=== PATIENT | female | born 1995 | race Caucasian/White ===

== ENCOUNTER 2018-07-18 06:27 | Day surgery (SDC) | payer OTHER | END 2018-07-18 16:50 | disposition home or self-care (01) | LOC: CIR.AMB 06:27 | DX: N80.8 Other endometriosis (principal); R10.2 Pelvic and perineal pain ==

== ENCOUNTER 2019-01-21 21:06 | Inpatient (IN) | payer OTHER ==
[~2019-01-21] VITALS: Ht 167.6 cm; Wt 47.2 kg
== END 2019-01-26 17:03 | DRG 833 ==
LOC: ER 21:06 → OB/GYN 22:17
PROVIDERS: ADMIT Obstetrics & Gynecology
PROC: 4A1HXCZ Monitoring of Products of Conception, Cardiac Rate, External Approach (ICD-10-PCS; principal; 2019-01-21)
PROC: [UNRECOGNIZED PROCEDURE] (2019-01-22)
DX: O21.1 Hyperemesis gravidarum with metabolic disturbance (principal); O30.031 Twin pregnancy, monochorionic/diamniotic, first trimester; O26.11 Low weight gain in pregnancy, first trimester

== ENCOUNTER 2019-03-18 10:09 | Outpatient (CLI) | payer OTHER | END 2019-03-18 11:30 | disposition home or self-care (01) | LOC: PRENATAL 10:09 | DX: O35.3XX0 Maternal care for (suspected) damage to fetus from viral disease in mother, not applicable or unspecified (principal); O30.002 Twin pregnancy, unspecified number of placenta and unspecified number of amniotic sacs, second trimester; O28.3 Abnormal ultrasonic finding on antenatal screening of mother ==

== ENCOUNTER → 2019-04-08 | Outpatient (CLI) | payer OTHER | END | disposition home or self-care (01) | LOC: PRENATAL 10:00 | DX: O26.842 Uterine size-date discrepancy, second trimester (principal); O30.92 Multiple gestation, unspecified, second trimester; O60.02 Preterm labor without delivery, second trimester ==

== ENCOUNTER 2019-04-27 21:37 | Outpatient (CLI) | payer OTHER ==
[2019-04-27] MEDS ORDERED: PRENATAL CAPLE1 EAC1 PO (22:17)
[2019-04-27] MEDS ORDERED: FOLIC ACID0.8 M1 PO (22:18)
== END 2019-04-28 19:59 | disposition home or self-care (01) ==
LOC: PRENATAL 21:37 → OBS/DEL 21:37 → PRENATAL 04-29 10:30
DX: O47.1 False labor at or after 37 completed weeks of gestation (principal); O30.002 Twin pregnancy, unspecified number of placenta and unspecified number of amniotic sacs, second trimester; R10.2 Pelvic and perineal pain; M54.5 Low back pain

== ENCOUNTER → 2019-04-29 | Outpatient (CLI) | payer OTHER ==
[~2019-04-29] MED LIST: FOLIC ACID0.8 M1 PO; PRENATAL CAPLE1 EAC1 PO
== END | disposition home or self-care (01) ==
LOC: PRENATAL 10:00
DX: O26.842 Uterine size-date discrepancy, second trimester (principal)

== ENCOUNTER → 2019-06-03 | Outpatient (CLI) | payer OTHER | END | disposition home or self-care (01) | LOC: PRENATAL 13:30 | DX: O26.843 Uterine size-date discrepancy, third trimester (principal); O35.0XX0 Maternal care for (suspected) central nervous system malformation in fetus, not applicable or unspecified; O30.043 Twin pregnancy, dichorionic/diamniotic, third trimester ==

== ENCOUNTER → 2019-07-01 | Outpatient (CLI) | payer OTHER | END | disposition home or self-care (01) | LOC: PRENATAL 12:38 | DX: O26.843 Uterine size-date discrepancy, third trimester (principal); O36.8192 Decreased fetal movements, unspecified trimester, fetus 2; O36.5992 Maternal care for other known or suspected poor fetal growth, unspecified trimester, fetus 2; O30.033 Twin pregnancy, monochorionic/diamniotic, third trimester; O36.82 Fetal anemia and thrombocytopenia ==

== ENCOUNTER 2019-07-08 13:24 | Outpatient (CLI) | payer OTHER ==
[2019-07-08] MEDS ORDERED: PEPCID20 MG PO (14:33)
[2019-07-09] MEDS ORDERED: FOLIC ACID20 MG PO (11:58)
[2019-07-09] MEDS ORDERED: PEPCID20 MG PO (11:59)
== END 2019-07-09 15:37 | disposition still patient (30) ==
LOC: OBS/DEL 13:24
DX: O60.03 Preterm labor without delivery, third trimester (principal); O30.043 Twin pregnancy, dichorionic/diamniotic, third trimester

== ENCOUNTER 2019-07-09 07:45 | Inpatient (IN) | payer OTHER ==
[~2019-07-09] VITALS: Ht 167.6 cm; Wt 1.8 kg
[~2019-07-09 07:45] MED LIST changes: +PEPCID20 MG PO
[2019-07-09] MEDS ORDERED: FOLIC ACID20 MG PO (11:58)
[2019-07-09] MEDS ORDERED: PEPCID20 MG PO (11:59)
== END 2019-07-13 15:30 | disposition home or self-care (01) | DRG 788 ==
LOC: OB/GYN 11:06 → LDR 11:06 → OB/GYN 16:14
PROVIDERS: ADMIT Obstetrics & Gynecology
PROC: 4A1HXCZ Monitoring of Products of Conception, Cardiac Rate, External Approach (ICD-10-PCS; 2019-07-09)
PROC: 10D00Z1 Extraction of Products of Conception, Low, Open Approach (ICD-10-PCS; principal; 2019-07-09 13:00)
DX: O82 Encounter for cesarean delivery without indication (principal); O64.1XX1 Obstructed labor due to breech presentation, fetus 1; O30.043 Twin pregnancy, dichorionic/diamniotic, third trimester; Z3A.35 35 weeks gestation of pregnancy; Z37.2 Twins, both liveborn

== ENCOUNTER 2023-05-23 10:27 | Outpatient (CLI) | payer OTHER ==
[~2023-05-23 10:27] MED LIST changes: +FOLIC ACID20 MG PO
== END 2023-05-23 10:28 | disposition home or self-care (01) ==
LOC: PRENATAL 10:27
PROVIDERS: ATTEND Obstetrics & Gynecology Maternal & Fetal Medicine
DX: O26.849 Uterine size-date discrepancy, unspecified trimester (principal); O36.8199 Decreased fetal movements, unspecified trimester, other fetus; Z3A.32 32 weeks gestation of pregnancy

== ENCOUNTER 2023-06-22 08:10 | Outpatient (CLI) | payer OTHER | END 2023-06-22 08:33 | disposition home or self-care (01) | LOC: PRENATAL 08:10 | PROVIDERS: ATTEND Obstetrics & Gynecology Maternal & Fetal Medicine | DX: O26.849 Uterine size-date discrepancy, unspecified trimester (principal); O36.8199 Decreased fetal movements, unspecified trimester, other fetus; Z3A.36 36 weeks gestation of pregnancy ==

== ENCOUNTER 2023-06-30 21:30 | Inpatient (IN) | payer OTHER ==
[~2023-06-30] VITALS: Ht 167.6 cm; Wt 74.8 kg
[2023-06-30] MEDS ORDERED: PRENATAL TABLE1 EAC1 PO (22:02)
[2023-06-30 22:05] LABS: HEMATOCRIT 37.4 % (36.0-45.00); HEMOGLOBIN 12.8 g/dL (12.0-15.00); MEAN CORPUSCULAR HEMOGLOBIN 28.8 pg (27.00-32.0); MEAN CORPUSCULAR HGB CONC 34.3 g/dl (32.0-36.0); PLATELET COUNT 253 K/uL (150-450); RED BLOOD COUNT 4.45 M/uL (4.00-6.00)
[2023-06-30 22:06] LABS: PH,URINE 6.5 (5.0-8.0); URINE APPEARANCE Clear; URINE BILIRRUBIN Negative (NEGATIVE); URINE BLOOD Small; URINE COLOR Yellow; URINE GLUCOSE Negative (NEGATIVE); URINE LEUKOCYTE Negative; URINE NITRATE Negative; URINE PROTEIN Negative (NEGATIVE); URINE UROBILINOGEN 0.2 E.U./dl
[2023-06-30 22:09] LABS: URINE BACTERIA 110.7 uL (0.0-1933); URINE EPITHELIAL CELLS 17.1 uL (0.0-38.8); URINE WBC 2.1 uL (0.0-23.2)
[2023-06-30 22:23] LABS: INR < 0.93; PARTIAL THROMBOPLASTIN TIME 25.2 SECONDS (22.0-34.0); PROTHROMBIN TIME 9.8 SECONDS (9.0-11.5)
[2023-07-01 06:47] LABS: ABG PH 7.308 (7.35-7.45); ABG pCO2 44.9 mmHg (35-45)
[2023-07-01 06:48] LABS: ABG PO2 24.3 mmHg (80-100); BASE EXCESS -4.4 mmol/l; SaO2 35.7 %; Tco2 23.3 mmol/l; o2 21 %
[2023-07-01 08:14] LABS: HEMATOCRIT 33.7 % (36.0-45.00); HEMOGLOBIN 11.5 g/dL (12.0-15.00); MEAN CELL VOLUME 85.3 fL (80.00-100.00); MEAN CORPUSCULAR HEMOGLOBIN 29.2 pg (27.00-32.0); MEAN CORPUSCULAR HGB CONC 34.2 g/dl (32.0-36.0); PLATELET COUNT 240 K/uL (150-450); RED BLOOD COUNT 3.95 M/uL (4.00-6.00); RED CELL DISTRIBUTION WIDTH 12.9 % (11.5-14.5)
== END 2023-07-02 11:41 | disposition home or self-care (01) | DRG 785 ==
LOC: O/R 21:30 → OB/GYN 21:30 → LDR 21:30 → O/R 22:54 → OB/GYN 07-01 01:05
PROVIDERS: Obstetrics & Gynecology; ADMIT Obstetrics & Gynecology; ATTEND Obstetrics & Gynecology
PROC: 4A1HXCZ Monitoring of Products of Conception, Cardiac Rate, External Approach (ICD-10-PCS; 2023-06-30)
PROC: 10D00Z1 Extraction of Products of Conception, Low, Open Approach (ICD-10-PCS; principal; 2023-07-01)
PROC: 0UB70ZZ Excision of Bilateral Fallopian Tubes, Open Approach (ICD-10-PCS; 2023-07-01)
DX: O34.211 Maternal care for low transverse scar from previous cesarean delivery (principal); Z3A.37 37 weeks gestation of pregnancy; Z37.0 Single live birth; Z30.2 Encounter for sterilization; Z20.822 Contact with and (suspected) exposure to COVID-19